=== PATIENT | male | born 1990 | race Caucasian/White ===

== ENCOUNTER 2016-09-24 04:16 | Emergency (ER) | payer OTHER ==
[~2016-09-24 04:16] MED LIST: LEVAQUIN750 MG PO
[2016-09-24 04:43] LABS: EOSINOPHIL (%) 0 % (0-5); HEMATOCRIT 43.4 % (38.0-50.0); IMMATURE GRANULOCYTE (%) 0.7 % (0.0-0.7); IMMATURE GRANULOCYTE COUNT 0.1 K/uL; INSTRUMENT ABS NEUTROPHIL CT 13.8 K/uL; LYMPHOCYTE COUNT 0.9 K/uL (1.0-2.8); MCH 32.1 PG (29.0-34.0); MCHC 34.3 G/DL (30.0-36.0); MCV 93.5 FL (86-99); MEAN PLAT.VOLUME 9.4 uM^3 (9.0-12.4); MONOCYTE COUNT 1.5 K/uL (0-0.8); NEUTROPHIL (%) 84.7 % (45-76); NEUTROPHIL COUNT 13.8 K/uL (1.8-6.4); PLATELET COUNT 256 K/uL (156-360); RBC DIS.WIDTH-CV 13.1 % (11.8-14.6); RBC DIS.WIDTH-SD 45.1 % (39-53); RED BLOOD COUNT 4.64 M/uL (4.00-5.50); WHITE BLOOD COUNT 16.3 K/uL (4.1-10.2)
[2016-09-24 04:55] LABS: AMYLASE 27 IU/L (1-118); CHLORIDE 106 mEq/L (99-109); POTASSIUM 3.9 mEq/L (3.7-5.4); SODIUM 140 mEq/L (136-147)
[2016-09-24 04:57] LABS: GLUCOSE 122 mg/dL (70-99)
[2016-09-24 04:58] LABS: ANION GAP 11 MEQ/L (2-14)
[2016-09-24 05:00] LABS: SERUM ETHYL ALCOHOL 15 mg/dL
[2016-09-24 05:01] LABS: GFR ESTIMATE (CALCULATED) > 59 mL/min/; UREA NITROGEN (BUN) 15 mg/dL (9-23)
[2016-09-24 05:04] LABS: LIPASE 15 U/L (1.0-51.0)
[2016-09-24] MEDS ORDERED: FLEXERIL10 MG PO (05:14)
[2016-09-24] MEDS ORDERED: NAPROSYN500 MG PO (05:14)
== END 2016-09-24 08:33 | disposition home or self-care (01) ==
LOC: TRA 04:16
PROVIDERS: Emergency Medicine
PROC: 3E0234Z Introduction of Serum, Toxoid and Vaccine into Muscle, Percutaneous Approach (ICD-10-PCS; principal; 2016-09-24)
DX: S00.81XA Abrasion of other part of head, initial encounter (principal); S06.0X0A Concussion without loss of consciousness, initial encounter; V47.0XXA Car driver injured in collision with fixed or stationary object in nontraffic accident, initial encounter; Z23 Encounter for immunization
CPT/HCPCS: 70450; 70486; 71260; 72125; 72129; 72132; 74177; 80048; 81003; 82150; 83690; 85025; 86900; 86901; 99281; 99285; G0480